=== PATIENT | female | born 1965 | race Caucasian/White ===

== ENCOUNTER 2022-10-27 00:54 | Day surgery (SDC) | payer BC, SELFPAY ==
[2022-10-11 14:40] VITALS: BMI 49.8
--- NOTE | 2022-10-26 20:08 | PM.HPGS ---
History of Present Illness History of Present Illness Consent: Risks, benefits, and alternatives have been discussed and questions answered. Patient agrees to proceed with procedure. Chief complaint: neoplasm screening Narrative: Aide Leija is a 56 year old female who is referred for colon cancer screening. Review of Systems Review of Systems: All systems reviewed & are unremarkable except as noted in HPI and below PMFSH Family History Family History Other Diabetes mellitus Family history of malignant neoplasm Social History Social History Smoking packs per day: 0.5 Smoking cigarettes per day: 10.0 Years smoked: 40 Smoking pack-years: 20.00 Smoking status: Former smoker Tobacco type: cigarettes Alcohol intake: never Living arrangements: with family Spiritual care concerns: No Meds Home Medications and Allergies Home Medications Medication Instructions Recorded Confirmed Type bupropion HCl 300 mg 24 hr tablet, 300 mg PO DAILY 10/11/22 10/11/22 History extended release lamotrigine 100 mg tablet 100 mg PO DAILY 10/11/22 10/11/22 History levothyroxine 75 mcg tablet 75 mcg PO DAILY 10/11/22 10/11/22 History quetiapine 300 mg tablet 600 mg PO HS 10/11/22 10/11/22 History rosuvastatin 20 mg tablet 20 mg PO DAILY 10/11/22 10/11/22 History Allergies Allergy/AdvReac Type Severity Reaction Status Date / Time Penicillins Allergy Unknown Penicillins Verified 10/27/22 11:14 ([id number]) Exam Const: General: alert Orientation/consciousness: patient oriented x3 Resp: Auscultation: clear to auscultation bilaterally Cardio: Rhythm: regular rhythm GI: GI Palp: Yes Soft to palpation and No Tenderness to palpation present (GI) Neuro: General: patient oriented x3 Assessment and Plan Assessment and plan (1) Colon cancer screening: Code(s): Z12.11 - Encounter for screening for malignant neoplasm of colon Status: Acute Assessment and Plan: Colonoscopy with possible biopsy or polypectomy or cautery or injection of substances.
[2022-10-27 11:14] VITALS: BP 122/65; PULSE 66; RESP 20; TEMP 36.5; O2SAT 99
--- NOTE | 2022-10-27 11:26 | P.PNAN_ITS ---
Anes - Initial Pre Proc Eval Procedure: Operation Date: 10/27/22 12:30 Proposed Procedures p Screening Colonoscopy - Kingston Roman MD Date/Time: 10/27/22 11:26 Surgeon: Kingston Roman MD Pre Op Diagnosis: neoplasm screening Patient Data Age: 56 Gender: F Height: 1.65 m Weight: 133.8 kg Last Vital Signs Temp 97.7 F 10/27/22 11:14 Pulse 66 10/27/22 11:14 Resp 20 10/27/22 11:14 BP 122/65 10/27/22 11:14 Pulse Ox 99 10/27/22 11:14 O2 Del Method Room Air 10/27/22 11:14 Allergies Allergy/AdvReac Type Severity Reaction Status Date / Time Penicillins Allergy Unknown Penicillins Verified 10/27/22 11:14 ([id number]) Home Medications Medication Instructions Recorded Confirmed Type bupropion HCl 300 mg 24 hr tablet, 300 mg PO DAILY 10/11/22 10/11/22 History extended release lamotrigine 100 mg tablet 100 mg PO DAILY 10/11/22 10/11/22 History levothyroxine 75 mcg tablet 75 mcg PO DAILY 10/11/22 10/11/22 History quetiapine 300 mg tablet 600 mg PO HS 10/11/22 10/11/22 History rosuvastatin 20 mg tablet 20 mg PO DAILY 10/11/22 10/11/22 History Patient hx anesthesia problems: none Family hx anesthesia problems: none Results Review: All pre-operative results and documents have been reviewed as part of the pre- operative evaluation. [facility] Family History Family History (Updated 01/20/18 @ 09:38 by DOCTOR UNKNOWN) Other Diabetes mellitus Family history of malignant neoplasm Social History Social History Smoking packs per day: 0.5 Smoking cigarettes per day: 10.0 Years smoked: 40 Smoking pack-years: 20.00 Smoking status: Former smoker Tobacco type: cigarettes Alcohol intake: never Living arrangements: with family Spiritual care concerns: No Anes - Eval Final PreProcedure Day of Procedure 10/27/22 11:26 Patient weight: super morbidly obese Heart: regular rate and rhythm Lungs: clear to auscultation Airway: Mallampati scale class III Neurological: alert and oriented Last oral intake: >/= 8 hours ASA classification: IV Emergent: no Anesthetic plan: proceed Anesthesia type and monitoring: general GIVS and standard monitoring Results Review: All pre-operative results and documents have been reviewed as part of the pre- operative evaluation. Informed Consent: The patient's anesthetic plan and its attendant risks and benefits were discussed with the patient/family/POA. Questions were solicited and answers provided to the satisfaction of the patient/family/POA.
[2022-10-27] MEDS: LACTATED RINGERS 1,000 ML 150 ML IV CONT (11:38)
[2022-10-27 12:37] VITALS: BP 129/91; PULSE 65; RESP 18; O2SAT 99
[2022-10-27 12:47] VITALS: BP 146/78; PULSE 63; RESP 17; O2SAT 100
[2022-10-27 12:57] VITALS: BP 122/74; PULSE 58; RESP 22; O2SAT 98
== END 2022-10-27 13:02 | disposition home or self-care (01) ==
PROVIDERS: PCP Internal Medicine; Visit Provider Internal Medicine Gastroenterology
PROC: 0DJD8ZZ Inspection of Lower Intestinal Tract, Via Natural or Artificial Opening Endoscopic (ICD-10-PCS; CPT 45378; principal; 2022-10-27 12:30)
DX: Z12.11 Encounter for screening for malignant neoplasm of colon (principal); Z87.891 Personal history of nicotine dependence
CPT/HCPCS: 45378; J2704; J7120

== ENCOUNTER 2023-06-21 23:05 | Emergency (ER) | payer BC, SELFPAY ==
--- NOTE | ~2023-06-21 | XR_ITS ---
EXAMINATION: XR shoulder RT min 2V DATE: 06/21/2023 23:24 INDICATION: Right shoulder pain. TECHNIQUE: 4 views of right shoulder were obtained. COMPARISON: None. FINDINGS: Bone alignment is normal. No fracture. There is mild osteoarthritis of glenohumeral joint a nd acromioclavicular joint. There is calcific tendinitis of the rotator cuff. IMPRESSION: 1. Mild polyarticular osteoarthritis. 2. Calcific tendinitis of the rotator cuff. Reviewed, dictated and finalized at location [facility]. [facility]
[2023-06-21 23:09] VITALS: BP 150/98; PULSE 88; RESP 20; TEMP 37.2; O2SAT 95
[2023-06-22 01:46] VITALS: BP 123/79; PULSE 66; RESP 15; O2SAT 98
--- NOTE | 2023-06-22 02:22 | ED.EXTPRO ---
HPI - Extremity Problem General Chief complaint: Extremity Problem,Nontraumatic Stated complaint: right shoulder pain Time Seen by Provider: 06/22/23 01:54 Source: patient Mode of arrival: ambulatory Limitations: no limitations History of Present Illness HPI Narrative: Patient is a 57 y/o female who presents to the ED with c/o R shoulder pain. Patient reports she has had intermittent pain in her right shoulder for some time. Reports she had a few days of pain last week after doing several loads of laundry. Last night, she was woken up from her sleep with more severe pain. She denies any further injury. States it is a constant stabbing pain in her right shoulder. She has tried using topical diclofenac and Excedrin without improvement. Denies weakness of right arm, radiation of pain down right arm, numbness, tingling, chest pain, difficulty breathing. Patient sees an digital advertising specialist in [place] for arthritis in her knees. Related Data Home Medications Medication Instructions Recorded Confirmed bupropion HCl 300 mg 24 hr tablet, 300 mg PO DAILY 10/11/22 10/11/22 extended release lamotrigine 100 mg tablet 100 mg PO DAILY 10/11/22 10/11/22 levothyroxine 75 mcg tablet 75 mcg PO DAILY 10/11/22 10/11/22 quetiapine 300 mg tablet 600 mg PO HS 10/11/22 10/11/22 rosuvastatin 20 mg tablet 20 mg PO DAILY 10/11/22 10/11/22 Allergies Allergy/AdvReac Type Severity Reaction Status Date / Time Penicillins Allergy Unknown Penicillins Verified 06/22/23 01:37 ([id number]) Review of Systems Review of Systems: CONSTITUTIONAL: Denies fever, chills, or sweats. MUSCULOSKELETAL: See HPI. NEUROLOGIC: Denies headache, dizziness, numbness, or weakness. All systems reviewed & are unremarkable except as noted in HPI and below PMFSH Family History Family History Other Diabetes mellitus Family history of malignant neoplasm Social History Social History Smoking packs per day: 0.5 Smoking cigarettes per day: 10.0 Years smoked: 40 Smoking pack-years: 20.00 Smoking status: Former smoker Tobacco type: cigarettes Alcohol intake: never Living arrangements: with family Spiritual care concerns: No Exam Narrative: GENERAL: Well appearing, morbidly obese with BMI of 50.0, non-toxic, in no acute distress. HEAD: Normocephalic, atraumatic. RESPIRATORY: Airway patent, respirations nonlabored. CARDIOVASCULAR: Regular rate and rhythm. Radial pulses 2+ MUSCULOSKELETAL: Moves all extremities. Mild limited range of motion of right shoulder abduction and flexion due to pain. Tenderness along superior and posterior right shoulder joint. No crepitus. No palpable deformities. 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 Sensation intact throughout right upper extremity. SKIN: Warm, dry, normal color. NEURO: A&O X3. Speech clear. Cranial nerves II-XII grossly intact. No ataxic movements. PSYCHIATRIC: Anxious. Normal interaction. Course Vital Signs Vital signs: Vital Signs Temperature 98.9 F 06/21/23 23:09 Pulse Rate 88 06/21/23 23:09 Respiratory Rate 20 06/21/23 23:09 Blood Pressure 150/98 H 06/21/23 23:09 Pulse Oximetry 95 06/21/23 23:09 Oxygen Delivery Room Air 06/21/23 23:09 Temperature 98.9 F 06/21/23 23:09 Pulse Rate 66 06/22/23 01:46 Respiratory Rate 15 06/22/23 01:46 Blood Pressure 123/79 06/22/23 01:46 Pulse Oximetry 98 06/22/23 01:46 Oxygen Delivery Room Air 06/21/23 23:09 MDM - Extremity (Nontraumatic) MDM Narrative Medical decision making narrative: Patient presented to ED with right shoulder pain, onset more severe tonight, history of similar intermittently over past several months. Patient?s injury is consistent with musculoskeletal etiology. No signs of neurologic or vascular compromise on physical examination. Compartments are so
[2023-06-22] MEDS: methylPREDNISolone SOD SUCC 125 MG VIAL IM (02:44)
[2023-06-22] MEDS: traMADol HCL (*CRX) 50 MG TABLET PO (02:44)
[2023-06-22 02:48] VITALS: BP 129/82; PULSE 69; RESP 19; O2SAT 100
== END 2023-06-22 02:51 | disposition home or self-care (01) ==
PROVIDERS: Emergency Provider Physician Assistant; PCP Internal Medicine
DX: M75.31 Calcific tendinitis of right shoulder (principal); Z87.891 Personal history of nicotine dependence
CPT/HCPCS: 73030; 96372; 99283; A4565; A9270; J2930

== ENCOUNTER 2023-07-01 11:52 | Outpatient (CLI) | payer BC, SELFPAY ==
--- NOTE | ~2023-07-01 | XR_ITS ---
EXAMINATION: XR lg joint inject/asp w image DATE: 07/01/2023 12:58 INDICATION: Right shoulder pain TECHNIQUE: A time-out was performed to verify the patient's name, date of , and procedure to b e performed. The procedure including the risks, benefits, and alternatives was discussed with the pat ient. Risks discussed included bleeding and infection. The patient understood the risks and agreed to proceed. The skin overlying the rotator cuff interval of the right glenohumeral joint was prepped a nd draped in usual sterile fashion. Anesthetic was administered with 1% lidocaine subcutaneously. A 22 G needle was advanced under fluoroscopic guidance into the joint. Injection of 1 mL of Omnipaque 240 confirmed intra-articular position of the needle. Subsequently, injectate consisting of 5 mm a 4:1 mixture of 1% lidocaine: 80 mg/mL Depo-Medrol for a total dosage of 80 mg Depo-Medrol was instill ed. Washout of contrast was seen confirming intra-articular administration. The needle was removed an d the entry site was cleaned and dressed. There were no immediate complications. Fluoroscopy exposur e time was 0.2 minutes. The total number of images was 2. Total DAP was 1.1 Gycm^2. FINDINGS: Real-time fluoroscopy demonstrates the needle in the right glenohumeral joint. Patient's pa in prior to procedure:06/15. Patient's pain following the procedure: 06/15. IMPRESSION: 1. Successful right glenohumeral joint injection of local anesthetic and steroid with no change in th e patients minimal presenting pain. Reviewed, dictated and finalized at location A. CEM[facility] IMPRESSION: 1. Successful right glenohumeral joint injection of local anesthetic and steroi d with no change in the patients minimal presenting pain.
== END 2023-07-01 11:53 | disposition home or self-care (01) ==
PROVIDERS: PCP Internal Medicine; Visit Provider Orthopaedic Surgery
DX: M25.511 Pain in right shoulder (principal); M65.221 Calcific tendinitis, right upper arm
CPT/HCPCS: 20610; 77002; J1040; Q9966